=== PATIENT | male | born 1940 | race Asian ===

== ENCOUNTER 2019-07-26 05:24 | Day surgery (SDC) | payer OTHER ==
[~2019-07-26] VITALS: Ht 160 cm; Wt 52.3 kg
[2019-07-26] MEDS ORDERED: SODIUM CHLORIDE 0.9% 1,000 ML ONE (05:36)
[2019-07-26] MEDS ORDERED: ESCI10TA61 PO (06:11)
[2019-07-26] MEDS ORDERED: FAMO20 PO (06:11)
[2019-07-26] MEDS ORDERED: HYDR200T4 PO (06:11)
[2019-07-26] MEDS ORDERED: TRAZ-252 PO (06:11)
[2019-07-26] MEDS ORDERED: MONT10TA26 PO (06:11)
[2019-07-26] MEDS ORDERED: SODIUM CHLORIDE 0.9% 1,000 ML IV ONE (07:00)
[2019-07-26] MEDS ORDERED: MIDAZOLAM HCL 2 MG/2 ML VIAL ONE (07:53)
[2019-07-26] MEDS ORDERED: FentaNYL CITRATE-PF 100 MCG/2 ML VIAL ONE (07:53)
[2019-07-26] MEDS ORDERED: MethylPREDNISolone SOD SUCC 125 MG/2 ML VIAL ONE (08:42)
[2019-07-26] MEDS ORDERED: MethylPREDNISolone SOD SUCC 125 MG/2 ML VIAL IVP ONE (08:45)
[2019-07-26] MEDS ORDERED: LIDOCAINE 2% 30 ML JELLY ONE (18:05)
[2019-07-26] MEDS ORDERED: BENZOCAINE 20% 50 MCG/SPRAY 57 GM ONE (18:05)
[2019-07-26] MEDS ORDERED: LIDOCAINE 4% 50 ML SOLUTION ONE (18:05)
[2019-07-26] MEDS ORDERED: OXYGEN THERAPY IH SCH (20:00)
== END 2019-07-26 11:45 | disposition home or self-care (01) ==
LOC: SURGERY 05:24
PROVIDERS: ATTEND Internal Medicine Critical Care Medicine
DX: R05 Cough (principal); J84.10 Pulmonary fibrosis, unspecified; J34.89 Other specified disorders of nose and nasal sinuses; J98.8 Other specified respiratory disorders; J38.4 Edema of larynx; B37.0 Candidal stomatitis; F17.210 Nicotine dependence, cigarettes, uncomplicated; Z98.890 Other specified postprocedural states; R19.00 Intra-abdominal and pelvic swelling, mass and lump, unspecified site
CPT/HCPCS: 31623; 31624; 71045; 87015; 87070; 87077; 87101; 87186; 87205; 87206; 87220; 88112; 88184; 88185; 88312; J2250; J2930; J3010; J7030